=== PATIENT | female | born 2000 | race Caucasian/White ===

== ENCOUNTER 2024-11-15 15:50 | Outpatient (CLI) | payer BC, SELFPAY ==
[2024-11-15 16:14] LABS: HCT 38.1 % (36.0-46.0); HGB 12.6 g/dL (11.2-15.7); MCH 31.3 pg (27.0-33.0); MCHC 33.1 % (32.0-36.0); MCV 95 fL (80-95); MPV 10.6 fL (8.0-11.0); Platelet Count 197 10^3/uL (130-400); RBC 4.02 10^6/uL (3.93-5.22); RDW 13.1 % (11.7-14.6); RDW-SD 45.1 fL
[2024-11-15 17:30] LABS: Ferritin 20 ng/mL (8-252); TSH (W/Ref FT4) 0.89 uIU/mL (0.36-3.74); Vitamin B12 557 pg/mL (193-986)
[2024-11-15 22:40] LABS: T3,Free 2.6 pg/mL (2.8-5.3)
[2024-11-16 00:33] LABS: Progesterone 0.5 ng/mL (See Table)
[2024-11-16 09:35] LABS: FSH 9.3 mIU/mL (See Note); Prolactin 7.2 ng/mL (See Note)
[2024-11-16 09:38] LABS: Thyroglobulin Antibody <15 U/mL (<=60); Thyroperoxidase Antibody <28 U/mL (<=60)
[2024-11-19 18:00] LABS: Estradiol, Mass Spectrometry 34 pg/mL; Estrone 38 pg/mL
[2024-11-22 13:00] LABS: Dehydroepiandrosterone (DHEA) 3.4 ng/mL (<13)
[2024-11-28 01:27] LABS: Testosterone, Bioavailable 2.2 ng/dL; Testosterone, Free 0.55 ng/dL (<0.13-1.08); Testosterone, Total 31 ng/dL (8-60)
== END 2024-11-15 15:51 | disposition home or self-care (01) ==
LOC: LBO 15:54
PROVIDERS: Visit Provider Obstetrics & Gynecology
DX: N93.9 Abnormal uterine and vaginal bleeding, unspecified (principal); Z3A.28 28 weeks gestation of pregnancy; O20.9 Hemorrhage in early pregnancy, unspecified
CPT/HCPCS: 36415; 84402; 84403; 84410; 85027; 86376; 82607; 82626; 82670; 82679; 82728; 83001; 84144; 84146; 84443; 84481